=== PATIENT | female | born 1980 | race American Indian/Alaskan Native ===

== ENCOUNTER 2016-12-24 23:34 | Emergency (ER) | payer MEDICAID, OTHER ==
[2016-12-24] MEDS ORDERED: Sodium Chloride 0.9% 1,000 ML IV ONE (23:40)
[2016-12-24] MEDS ORDERED: Pantoprazole 40 MG Vial IVPUSH ONE (23:40)
[2016-12-24] MEDS ORDERED: Ondansetron 4 MG/2 ML SDV IV ONE (23:40)
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
[2016-12-25 00:11] LABS: CHLORIDE,CL 99 mmol/L (101-111); SODIUM,NA 128 mmol/L (135-145)
[2016-12-25] MEDS ORDERED: Sodium Chloride 0.9% 1,000 ML IV ONE (00:38)
[2016-12-25] MEDS ORDERED: Iopamidol 612 MG/ML 100 ML Bottle IVPUSH ONE (00:41)
[2016-12-25 00:49] VITALS: BP 89/42
== END 2016-12-25 01:40 ==
LOC: DL.ED 23:34
DX: K29.21 Alcoholic gastritis with bleeding (principal); D63.8 Anemia in other chronic diseases classified elsewhere; I50.9 Heart failure, unspecified; R06.02 Shortness of breath; K21.9 Gastro-esophageal reflux disease without esophagitis
CPT/HCPCS: 36415; 71260; 80053; 80305; 81001; 82140; 84703; 85025; 85610; 96361; 96374; 96375; 99285; C9113; G0480; J2405; J7030; Q9967

== ENCOUNTER 2017-03-25 13:53 | Emergency (ER) | payer MEDICAID, OTHER ==
[2017-03-25] MEDS ORDERED: Sodium Chloride 0.9% 10 ML Syringe FLUSH PRN (14:01)
--- NOTE | 2017-03-25 14:01 | EDM.PDOC ---
ED HPI GENERAL MEDICAL PROBLEM - General Chief Complaint: Gastrointestinal Problem Stated Complaint: BY AMBULANCE Time Seen by Provider: 03/25/17 14:01 Source of Information: Reports: Patient, EMS Notes Reviewed, RN Notes Reviewed History Limitations: Reports: Other (mild confusion) - History of Present Illness INITIAL COMMENTS - FREE TEXT/NARRATIVE: Arrives by ambulance with complaint of onset of epigastric abdominal discomfort with nausea last night. Vomited x1 today bloody with black emesis. Reports increasing jaundice x 1 week. Patient claims she last drank alcohol 2-1/2 weeks ago. EMS reports boyfriend told them patient drank up until 2 days ago. Patient denies fever, chills or melena. Severity: Severe Improves with: Reports: None Worsens with: Reports: None Associated Symptoms: Reports: No Other Symptoms Epigastric Pain Score (Numeric/FACES): 8 - Related Data Allergies Allergy/AdvReac Type Severity Reaction Status Date / Time No Known Allergies Allergy Verified 03/25/17 14:22 Home Meds: Home Meds . [No Known Home Meds] 07/16/14 [History] Past Medical History HEENT History: Reports: None Cardiovascular History: Reports: Heart Failure Respiratory History: Reports: SOB Gastrointestinal History: Reports: Cholelithiasis, Cirrhosis, Gastritis, GERD, GI Bleed Genitourinary History: Reports: Acute Renal Failure [employer] O[employer] History: Reports: None Musculoskeletal History: Reports: Other (See Below) Other Musculoskeletal History: left ankle fracture with pins and screws Neurological History: Reports: None Psychiatric History: Reports: Addiction Endocrine/Metabolic History: Reports: None Hematologic History: Reports: None Immunologic History: Reports: None Oncologic (Cancer) History: Reports: None Dermatologic History: Reports: None - Infectious Disease History Infectious Disease History: Reports: None - Past Surgical History HEENT Surgical History: Reports: None Respiratory Surgical History: Reports: None GI Surgical History: Reports: Cholecystectomy Social & Family History - Family History Family Medical History: Noncontributory - Tobacco Use Smoking Status *Q: Never Smoker Second Hand Smoke Exposure: No - Alcohol Use Days Per Week of Alcohol Use: 2 Number of Drinks Per Day: 6 Total Drinks Per Week: 12 - Recreational Drug Use Recreational Drug Use: No - Living Situation & Occupation Living situation: Reports: with Significant Other Occupation: Unemployed ED ROS GENERAL - Review of Systems Review Of Systems: ROS reveals no pertinent complaints other than HPI. ED EXAM, GI/ABD - Physical Exam Exam: See Below Exam Limited By: No Limitations General Appearance: Other (severely jaundice, chronically ill appearing. ) Eyes: Bilateral: EOMI (scleral icterus.) Ears: Normal External Exam Nose: Normal Inspection Throat/Mouth: Normal Inspection Head: Atraumatic, Normocephalic Neck: Normal Inspection, Supple, Non-Tender, Full Range of Motion Respiratory/Chest: No Respiratory Distress, Lungs Clear, Normal Breath Sounds, No Accessory Muscle Use, Chest Non-Tender Cardiovascular: Normal Peripheral Pulses, Regular Rate, Rhythm, No Edema, No Gallop, No JVD, No Murmur, No Rub GI/Abdominal: Other (pbese, protruberant abdomen with moderate arscies fluid wave. Mild epigastric tenderness.) Back Exam: Normal Inspection, Full Range of Motion, NT Extremities: Normal Inspection, Normal Range of Motion, Non-Tender, Normal Capillary Refill, No Pedal Edema Neurological: Other (mild confusion, no motor/sensory deficits.) Psychiatric: Other (depressed mood, flat affect. ) Skin Exam: Jaundice Lymphatic: No Adenopathy EKG INTERPRETATION EKG Date: 03/25/17 Time: 14:08 Rhythm: other (sinus rhythm.) Rate (beats/min): 75 [place]: normal P-wave: present QRS: other (nonspecific IVCD) ST-T: other ([place] abnormal T anterolateral leads) QT: normal Course - Vital Signs Last Recorded V/S: Last Vital Signs Temp 35.8 C 03/25/17 14:10 Pulse 85 03/25/17 14:10 Resp 17 03/25/17 14:10 BP 101/50 L 03/25/17 14:10 Pulse Ox 100 03/25/17 14:10 - Orders/Labs/Meds Orders: Active Orders 24 hr Category Date Time Status EKG 12 Lead [EKG Documentation Completion] [RC] STAT Care 03/25/17 14:01 Active Peripheral IV Care [RC] . DIRECTED Care 03/25/17 14:01 Active Peripheral IV Insertion Adult [OM.PC] Stat Oth 03/25/17 14:01 Ordered Labs: Laboratory Tests 03/25/17 03/25/17 03/25/17 Range/Units 14:15 14:15 14:15 WBC 5.4 (5.0-10.0) 10^3/uL RBC 1.77 L (4.2-5.4) 10^6/uL Hgb 7.2 L (12.0-16.0) g/dL Hct 20.2 L* (37.0-47.0) % MCV 114.1 H (80-100) fL MCH 40.7 H (27.0-34.0) pg MCHC 35.6 H (33.0-35.0) g/dL Plt Count 56 L (150-450) 10^3/uL Neut % (Auto) 80.7 H (42.2-75.2) % Lymph % (Auto) 7.8 L (20.5-50.1) % [place] % (Auto) 10.6 H (2-8) % Eos % (Auto) 0.7 L (1.0-3.0) % Baso % (Auto) 0.2 (0.0-1.0) % Add Manual Diff Yes Neutrophils % (Manual) 73 % Band Neutrophils % 5 % Lymphocytes % (Manual) 12 % Monocytes % (Manual) 9 % Eosinophils % (Manual) 1 % PT 21.0 H (9.0-12.0) SEC INR 2.1 H (0.9-1.2) APTT Cancelled Sodium 119 L (135-145) mmol/L Potassium 2.4 L (3.6-5.0) mmol/L Chloride 90 L (101-111) mmol/L Carbon Dioxide 19.0 L (21.0-31.0) mmol/L Anion Gap 12.4 BUN 22 H (7-18) mg/dL Creatinine 1.1 (0.6-1.3) mg/dL Est Cr Clr Drug Dosing TNP Estimated GFR (MDRD) 57 BUN/Creatinine Ratio 20.00 Glucose 102 (74-105) mg/dL Calcium 7.6 L (8.4-10.2) mg/dl Total Bilirubin 23.7 H (0.2-1.0) mg/dL GGT 100 H (7-64) IU/L AST 92 H (10-42) IU/L ALT 23 (10-60) IU/L Alkaline Phosphatase 124 H (42-121) IU/L Ammonia (11-35) umol/L Troponin I < 0.02 (0.00-0.02) ng/ml Total Protein 7.0 (6.7-8.2) g/dl Albumin 1.5 L (3.2-5.5) g/dl Globulin 5.5 Albumin/Globulin Ratio 0.27 Amylase 63 (28-100) U/L Lipase 63 H (22-51) U/L Urine Color (YELLOW) Urine Appearance (CLEAR) Urine pH (5.0-9.0) Ur Specific [place] (1.005-1.030) Urine Protein (NEGATIVE) Urine Glucose (UA) (NEGATIVE) Urine Ketones (NEGATIVE) Urine Occult Blood (NEGATIVE) Urine Nitrite (NEGATIVE) Urine Bilirubin (NEGATIVE) Urine Urobilinogen (0.2-1.0) mg/dL Ur Leukocyte Esterase (NEGATIVE) Urine RBC /HPF Urine WBC (0-5/HPF) /HPF Ur Epithelial Cells /HPF Amorphous Sediment (0/HPF) /HPF Urine Bacteria (0-FEW/HPF) /HPF Urine HCG, Qual Urine Opiates Screen (NEGATIVE) Ur Oxycodone Screen (NEGATIVE) Urine Methadone Screen (NEGATIVE) Ur Barbiturates Screen (NEGATIVE) U Tricyclic Antidepress (NEGATIVE) Ur Phencyclidine Scrn (NEGATIVE) Ur Amphetamine Screen (NEGATIVE) U Methamphetamines Scrn (NEGATIVE) Urine MDMA Screen (NEGATIVE) U Benzodiazepines Scrn (NEGATIVE) Urine Cocaine Screen (NEGATIVE) U Marijuana (THC) Screen (NEGATIVE) Ethyl Alcohol < 5 mg/dL Blood Type Gel Antibody Screen 03/25/17 03/25/17 03/25/17 Range/Units 14:15 14:15 14:43 WBC (5.0-10.0) 10^3/uL RBC (4.2-5.4) 10^6/uL Hgb (12.0-16.0) g/dL Hct (37.0-47.0) % MCV (80-100) fL MCH (27.0-34.0) pg MCHC (33.0-35.0) g/dL Plt Count (150-450) 10^3/uL Neut % (Auto) (42.2-75.2) % Lymph % (Auto) (20.5-50.1) % [place] % (Auto) (2-8) % Eos % (Auto) (1.0-3.0) % Baso % (Auto) (0.0-1.0) % Add Manual Diff Neutrophils % (Manual) % Band Neutrophils % % Lymphocytes % (Manual) % Monocytes % (Manual) % Eosinophils % (Manual) % PT (9.0-12.0) SEC INR (0.9-1.2) APTT Sodium (135-145) mmol/L Potassium (3.6-5.0) mmol/L Chloride (101-111) mmol/L Carbon Dioxide (21.0-31.0) mmol/L Anion Gap BUN (7-18) mg/dL Creatinine (0.6-1.3) mg/dL Est Cr Clr Drug Dosing Estimated GFR (MDRD) BUN/Creatinine Ratio Glucose (74-105) mg/dL Calcium (8.4-10.2) mg/dl Total Bilirubin (0.2-1.0) mg/dL GGT (7-64) IU/L AST (10-42) IU/L ALT (10-60) IU/L Alkaline Phosphatase (42-121) IU/L Ammonia 83 H (11-35) umol/L Troponin I (0.00-0.02) ng/ml Total Protein (6.7-8.2) g/dl Albumin (3.2-5.5) g/dl Globulin Albumin/Globulin Ratio Amylase (28-100) U/L Lipase (22-51) U/L Urine Color (YELLOW) Urine Appearance (CLEAR) Urine pH (5.0-9.0) Ur Specific [place] (1.005-1.030) Urine Protein (NEGATIVE) Urine Glucose (UA) (NEGATIVE) Urine Ketones (NEGATIVE) Urine Occult Blood (NEGATIVE) Urine Nitrite (NEGATIVE) Urine Bilirubin (NEGATIVE) Urine Urobilinogen (0.2-1.0) mg/dL Ur Leukocyte Esterase (NEGATIVE) Urine RBC /HPF Urine WBC (0-5/HPF) /HPF Ur Epithelial Cells /HPF Amorphous Sediment (0/HPF) /HPF Urine Bacteria (0-FEW/HPF) /HPF Urine HCG, Qual Urine Opiates Screen Negative (NEGATIVE) Ur Oxycodone Screen Negative (NEGATIVE) Urine Methadone Screen Negative (NEGATIVE) Ur Barbiturates Screen Negative (NEGATIVE) U Tricyclic Antidepress Negative (NEGATIVE) Ur Phencyclidine Scrn Negative (NEGATIVE) Ur Amphetamine Screen Negative (NEGATIVE) U Methamphetamines Scrn Negative (NEGATIVE) Urine MDMA Screen Negative (NEGATIVE) U Benzodiazepines Scrn Negative (NEGATIVE) Urine Cocaine Screen Negative (NEGATIVE) U Marijuana (THC) Screen Negative (NEGATIVE) Ethyl Alcohol mg/dL Blood Type A POSITIVE Gel Antibody Screen Negative 03/25/17 03/25/17 Range/Units 14:43 14:43 WBC (5.0-10.0) 10^3/uL RBC (4.2-5.4) 10^6/uL Hgb (12.0-16.0) g/dL Hct (37.0-47.0) % MCV (80-100) fL MCH (27.0-34.0) pg MCHC (33.0-35.0) g/dL Plt Count (150-450) 10^3/uL Neut % (Auto) (42.2-75.2) % Lymph % (Auto) (20.5-50.1) % [place] % (Auto) (2-8) % Eos % (Auto) (1.0-3.0) % Baso % (Auto) (0.0-1.0) % Add Manual Diff Neutrophils % (Manual) % Band Neutrophils % % Lymphocytes % (Manual) % Monocytes % (Manual) % Eosinophils % (Manual) % PT (9.0-12.0) SEC INR (0.9-1.2) APTT Sodium (135-145) mmol/L Potassium (3.6-5.0) mmol/L Chloride (101-111) mmol/L Carbon Dioxide (21.0-31.0) mmol/L Anion Gap BUN (7-18) mg/dL Creatinine (0.6-1.3) mg/dL Est Cr Clr Drug Dosing Estimated GFR (MDRD) BUN/Creatinine Ratio Glucose (74-105) mg/dL Calcium (8.4-10.2) mg/dl Total Bilirubin (0.2-1.0) mg/dL GGT (7-64) IU/L AST (10-42) IU/L ALT (10-60) IU/L Alkaline Phosphatase (42-121) IU/L Ammonia (11-35) umol/L Troponin I (0.00-0.02) ng/ml Total Protein (6.7-8.2) g/dl Albumin (3.2-5.5) g/dl Globulin Albumin/Globulin Ratio Amylase (28-100) U/L Lipase (22-51) U/L Urine Color [place] (YELLOW) Urine Appearance Turbid (CLEAR) Urine pH 5.5 (5.0-9.0) Ur Specific [place] 1.010 (1.005-1.030) Urine Protein 30 H (NEGATIVE) Urine Glucose (UA) 100 H (NEGATIVE) Urine Ketones 15 H (NEGATIVE) Urine Occult Blood Trace-lysed H (NEGATIVE) Urine Nitrite Negative (NEGATIVE) Urine Bilirubin Large H (NEGATIVE) Urine Urobilinogen 1.0 (0.2-1.0) mg/dL Ur Leukocyte Esterase Trace H (NEGATIVE) Urine RBC 0-5 /HPF Urine WBC 0-5 (0-5/HPF) /HPF Ur Epithelial Cells Few /HPF Amorphous Sediment Moderate H (0/HPF) /HPF Urine Bacteria Many H (0-FEW/HPF) /HPF Urine HCG, Qual Negative Urine Opiates Screen (NEGATIVE) Ur Oxycodone Screen (NEGATIVE) Urine Methadone Screen (NEGATIVE) Ur Barbiturates Screen (NEGATIVE) U Tricyclic Antidepress (NEGATIVE) Ur Phencyclidine Scrn (NEGATIVE) Ur Amphetamine Screen (NEGATIVE) U Methamphetamines Scrn (NEGATIVE) Urine MDMA Screen (NEGATIVE) U Benzodiazepines Scrn (NEGATIVE) Urine Cocaine Screen (NEGATIVE) U Marijuana (THC) Screen (NEGATIVE) Ethyl Alcohol mg/dL Blood Type Gel Antibody Screen Meds: Medications Discontinued Medications Generic Name Dose Route Start Last Admin Trade Name Freq PRN Reason Stop Dose Admin Multivitamins/Minerals 10 ml/ 1,011.2 mls @ 999 mls/hr 03/25/17 14:03 15:08 Folic Acid 1 mg/ Thiamine HCl IV 03/25/17 15:03 999 mls/hr 100 mg/ Lactated Ringer's .BOLUS ONE Administration Pantoprazole Sodium 80 mg/ 100 mls @ 10 mls/hr 03/25/17 14:06 03/25/17 15:00 Sodium Chloride IV 03/26/17 00:05 10 mls/hr .Continuous ONE Administration Potassium Chloride 10 meq/ 100 mls @ 100 mls/hr 03/25/17 14:47 03/25/17 15:28 Premix IV 03/25/17 15:46 100 mls/hr ONETIME ONE Administration Octreotide Acetate 50 mcg 03/25/17 14:05 03/25/17 15:02 Sandostatin IVPUSH 03/25/17 14:06 50 mcg ONETIME ONE Administration Octreotide Acetate 50 mcg 03/25/17 14:15 Sandostatin IV ASDIRECTED KESHAWN Ondansetron HCl 4 mg 03/25/17 14:03 03/25/17 14:53 Zofran IV 03/25/17 14:04 4 mg ONETIME ONE Administration Pantoprazole Sodium 80 mg 03/25/17 14:04 03/25/17 14:56 Protonix Iv IVPUSH 03/25/17 14:05 80 mg .BOLUS ONE Administration Sodium Chloride 10 ml 03/25/17 14:01 03/25/17 14:55 Saline Flush FLUSH 10 ml ASDIRECTED PRN Administration Keep Vein Open Departure - Departure Time of Disposition: 15:11 Disposition: DC/Tfer to Acute Hospital 02 Condition: critical Clinical Impression: Alcohol abuse, Severe anemia, Hyponatremia GI bleed Qualifiers: GI bleed type/associated pathology: gastritis Gastritis type: alcoholic Qualified Code(s): K29.21 - Alcoholic gastritis with bleeding Alcoholic cirrhosis of liver Qualifiers: Ascites presence: with ascites Qualified Code(s): K70.31 - Alcoholic cirrhosis of liver with ascites Liver failure, acute Qualifiers: Hepatic coma status: without hepatic coma Qualified Code(s): K72.00 - Acute and subacute hepatic failure without coma - Discharge Information Forms: ED Department Discharge, Interfacility Transfer EMTALA - My Orders Last 24 Hours: My Active Orders 03/25/17 14:01 EKG 12 Lead [EKG Documentation Completion] [RC] STAT Peripheral IV Care [RC] . DIRECTED Peripheral IV Insertion Adult [OM.PC] Stat - Assessment/Plan Last 24 Hours: My Active Orders 03/25/17 14:01 EKG 12 Lead [EKG Documentation Completion] [RC] STAT Peripheral IV Care [RC] . DIRECTED Peripheral IV Insertion Adult [OM.PC] Stat
[2017-03-25] MEDS ORDERED: MVI, Adult with Vitamin K 10 ML, Folic Acid 1 MG, Thiamine 100 MG in Lactated Ringers 1... IV ONE ×4 (14:03)
[2017-03-25] MEDS ORDERED: Ondansetron 4 MG/2 ML SDV IV ONE (14:03)
[2017-03-25] MEDS ORDERED: Pantoprazole 40 MG Vial IVPUSH ONE (14:04)
[2017-03-25] MEDS ORDERED: Octreotide 100 MCG/ML SDV IVPUSH ONE (14:05)
[2017-03-25] MEDS ORDERED: Pantoprazole 80 MG in Sodium Chloride 0.9% 100 ML IV ONE (14:06)
[2017-03-25] MEDS ORDERED: Octreotide 100 MCG/ML SDV IV SCH (14:15)
[2017-03-25 14:22] VITALS: BP 101/50
[2017-03-25 14:43] LABS: CHLORIDE,CL 90 mmol/L (101-111)
[2017-03-25 14:46] LABS: SODIUM,NA 119 mmol/L (135-145)
[2017-03-25] MEDS ORDERED: Potassium Chloride 10 MEQ in Premix Bag 1 BAG IV ONE (14:47)
--- NOTE | 2017-04-17 11:37 | EKG ---
03/25/2017 - KULWANT ROJO - EKG is sinus rhythm with a rate of 75, normal FL interval, normal axis. There is a nonspecific intraventricular conduction delay. There are nonspecific ST-T wave changes on the lateral leads. There are no signs of acute myocardial injury. [facility] /[id number]
== END 2017-03-25 16:02 ==
LOC: DL.ED 13:53
DX: F10.10 Alcohol abuse, uncomplicated (principal); D64.9 Anemia, unspecified; E87.1 Hypo-osmolality and hyponatremia; K29.21 Alcoholic gastritis with bleeding; K70.31 Alcoholic cirrhosis of liver with ascites; K72.00 Acute and subacute hepatic failure without coma; I50.9 Heart failure, unspecified; Z98.890 Other specified postprocedural states
CPT/HCPCS: 36415; 80053; 80305; 81001; 81025; 82140; 82150; 82977; 83690; 84484; 85025; 85610; 86850; 86900; 86901; 93005; 96365; 96368; 96375; 99285; C9113; G0480; J2354; J2405; J3411; J3480; J7050; J7120; J3490